=== PATIENT | male | born 1990 | race Caucasian/White ===

== ENCOUNTER 2017-04-23 00:48 | Emergency (ER) | payer BC ==
[~2017-04-23] VITALS: Ht 170.2 cm; Wt 56.7 kg
[~2017-04-23 00:48] MED LIST: ERYT.5TO RIGHTEYE; NAPR500 PO; PENVK500 PO
[2017-04-23 02:40] LABS: Influenza A Negative (NEGATIVE); Influenza B Negative (NEGATIVE)
== END 2017-04-23 03:44 | disposition home or self-care (01) ==
LOC: ER 00:48
PROVIDERS: Emergency Medicine
DX: J02.9 Acute pharyngitis, unspecified (principal); F17.210 Nicotine dependence, cigarettes, uncomplicated
CPT/HCPCS: 87081; 87430; 87804; 99283

== ENCOUNTER 2017-10-05 05:46 | Emergency (ER) | payer BC ==
[~2017-10-05] VITALS: Ht 170.2 cm; Wt 59.0 kg
[2017-10-05 06:45] LABS: Calcium, Ionized (POC) 1.11 mmol/L (1.10-1.46); Chloride (POC) 101 mmol/L (98-108); Creatinine (POC) 0.9 mg/dL (0.8-1.3); Glucose (ISTAT POC) 97 mg/dL (70-99); Hemoglobin (POC) 16.3 g/dL (13.5-17.5); Potassium (POC) 3.6 mmol/L (3.5-5.5); Sodium (POC) 141 mmol/L (135-148); Total CO2 (POC) 27 mmol/L (21-32)
[2017-10-05] MEDS ORDERED: HYDPAM25 PO (06:50)
== END 2017-10-05 07:13 | disposition home or self-care (01) ==
LOC: ER 05:46
PROVIDERS: Emergency Medicine
DX: F41.9 Anxiety disorder, unspecified (principal); F17.210 Nicotine dependence, cigarettes, uncomplicated; Z79.899 Other long term (current) drug therapy
CPT/HCPCS: 80047; 85014; 99283